=== PATIENT | female | born 1960 | race Caucasian/White ===

== ENCOUNTER 2018-03-30 06:16 | Inpatient (IN) ==
[2018-03-30] MEDS ORDERED: MAGNESIUM SULF RIDER 4 GM in PREMIX 1 EACH IV PRN (07:56)
[2018-03-30] MEDS ORDERED: ZALEPLON 5 MG CAPSULE PO PRN (07:56)
[2018-03-30] MEDS ORDERED: DOCUSATE SODIUM 100 MG CAPSULE PO PRN (07:56)
[2018-03-30] MEDS ORDERED: MAGNESIUM SULF RIDER 2 GM in PREMIX 1 EACH IV PRN (07:56)
[2018-03-30] MEDS ORDERED: ACETAMINOPHEN 325 MG TABLET PO PRN (07:56)
[2018-03-30] MEDS ORDERED: MORPHINE 4 MG/1 ML VIAL IV PRN (07:56)
[2018-03-30] MEDS ORDERED: diphenhydrAMINE CAP 25 MG CAPSULE PO PRN (07:56)
[2018-03-30] MEDS ORDERED: ONDANSETRON 4 MG/2 ML VIAL IV PRN (07:56)
[2018-03-30] MEDS ORDERED: DILTIAZEM INJ 100 MG in SODIUM CHLORIDE 0.9% 100 ML IV SCH (08:00)
[2018-03-30 09:01] LABS: Basophils % 0.4 % (0.0-0.8); Eosinophils # 0.1 10*3/uL (0.0-0.87); Eosinophils % 1.6 % (0.00-10.9); Hematocrit 42.8 VOL% (35.7-47.0); Hemoglobin 14.3 GM/DL (12.0-16.0); Immature Granulocytes % 0.2 %; Immature Granulocytes Absolute 0.01 #; Lymphocytes # 1.3 10*3/uL (1.4-4.0); Lymphocytes % 25.1 % (21.3-54.2); Mean Corpuscular HGB Conc 33.4 GM/DL (32-36); Mean Corpuscular Hemoglobin 29 PG (27-34); Mean Corpuscular Volume 88.1 FL (87-102); Mean Platelet Volume 9.7 FL (9.6-12.0); Monocytes # 0.5 10*3/uL (0.11-0.8); Monocytes % 9.2 % (1.7-12.7); Neutrophils # 3.3 10*3/uL (1.4-7.4); Neutrophils % 63.5 % (38.7-73.9); Platelet Count 208 T/CUMM (130-400); Red Blood Count 4.86 MC/CUMM (3.8-5.5); White Blood Count 5.1 T/CUMM (4-12)
[2018-03-30 09:35] LABS: Thyroid Stimulating Hormone < 0.005 uIU/ml (0.358-3.74)
[2018-03-30 09:36] LABS: Calcium 8.9 MG/DL (8.5-10.1); Osmolality,Calculated 287.7 MOS/KG (273-304); Potassium 4.2 MMOL/L (3.5-5.1)
[2018-03-30] MEDS ORDERED: SOTALOL 80 MG TABLET PO SCH (10:00)
[2018-03-30] MEDS: PANTOPRAZOLE 40 MG TABLET PO SCH (11:31)
[2018-03-30] MEDS ORDERED: DILTIAZEM CD 180 MG CAPSULE PO SCH ×2 (12:00→21:00)
[2018-03-30] MEDS ORDERED: SODIUM CHLORIDE 0.9% 250 ML IV ONE ×2 (13:19→13:39)
[2018-03-30] MEDS ORDERED: ETOMIDATE 40 MG/20 ML VIAL IV ONE (13:51)
[2018-03-30] MEDS ORDERED: PROPOFOL 200 MG/20 ML VIAL IV ONE (13:51)
[2018-03-30] MEDS ORDERED: SODIUM CHLORIDE 0.9% 500 ML IV ONE (14:08)
[2018-03-30] MEDS ORDERED: SODIUM CHLORIDE 0.9% 1,000 ML IV ONE (14:39)
[2018-03-30] MEDS: SODIUM CHLORIDE 0.9% 1,000 ML IV SCH ×2 (16:01→22:46)
[2018-03-31 04:38] LABS: Basophils % 0.2 % (0.0-0.8); Eosinophils # 0.1 10*3/uL (0.0-0.87); Hemoglobin 13.5 GM/DL (12.0-16.0); Immature Granulocytes % 0.2 %; Immature Granulocytes Absolute 0.02 #; Lymphocytes # 2.2 10*3/uL (1.4-4.0); Mean Corpuscular HGB Conc 32.9 GM/DL (32-36); Mean Corpuscular Hemoglobin 29 PG (27-34); Mean Corpuscular Volume 89.3 FL (87-102); Mean Platelet Volume 10.5 FL (9.6-12.0); Monocytes # 0.8 10*3/uL (0.11-0.8); Monocytes % 8.9 % (1.7-12.7); Neutrophils # 5.7 10*3/uL (1.4-7.4); Neutrophils % 64.7 % (38.7-73.9); Platelet Count 200 T/CUMM (130-400); Red Blood Count 4.59 MC/CUMM (3.8-5.5); Red Cell Distribution Width 12.1 % (9.3-17.3); White Blood Count 8.8 T/CUMM (4-12)
[2018-03-31 04:56] LABS: Calcium 8.3 MG/DL (8.5-10.1); Osmolality,Calculated 287.6 MOS/KG (273-304); Potassium 3.9 MMOL/L (3.5-5.1)
[2018-03-31] MEDS: SODIUM CHLORIDE 0.9% 1,000 ML IV SCH (05:09)
[2018-03-31] MEDS: PANTOPRAZOLE 40 MG TABLET PO SCH (08:58)
[2018-03-31] MEDS ORDERED: THYROID PORK 45 MG PO SCH (09:00)
[2018-03-31] MEDS ORDERED: THYROID PORK 120 MG PO SCH (09:00)
[2018-03-31] MEDS: DILTIAZEM CD 180 MG CAPSULE PO SCH (10:13)
[2018-03-31] MEDS: METOPROLOL SUCCINATE XL 25 MG TABLET PO SCH ×2 (10:13→21:12)
[2018-03-31] MEDS: FLECAINIDE 50 MG TABLET PO SCH ×2 (11:29→21:12)
[2018-03-31] MEDS: RIVAROXABAN 20 MG TABLET PO SCH (16:41)
[2018-04-01 04:15] LABS: Basophils % 0.3 % (0.0-0.8); Eosinophils # 0.1 10*3/uL (0.0-0.87); Eosinophils % 1.8 % (0.00-10.9); Hematocrit 38.9 VOL% (35.7-47.0); Hemoglobin 13.3 GM/DL (12.0-16.0); Immature Granulocytes % 0.3 %; Immature Granulocytes Absolute 0.02 #; Lymphocytes # 2.2 10*3/uL (1.4-4.0); Lymphocytes % 31.5 % (21.3-54.2); Mean Corpuscular HGB Conc 34.2 GM/DL (32-36); Mean Corpuscular Hemoglobin 29 PG (27-34); Mean Corpuscular Volume 85.1 FL (87-102); Mean Platelet Volume 10.5 FL (9.6-12.0); Monocytes # 0.6 10*3/uL (0.11-0.8); Monocytes % 8.6 % (1.7-12.7); Neutrophils # 3.9 10*3/uL (1.4-7.4); Neutrophils % 57.5 % (38.7-73.9); Platelet Count 196 T/CUMM (130-400); Red Blood Count 4.57 MC/CUMM (3.8-5.5); Red Cell Distribution Width 11.9 % (9.3-17.3); White Blood Count 6.8 T/CUMM (4-12)
[2018-04-01 04:55] LABS: Calcium 8.5 MG/DL (8.5-10.1); Osmolality,Calculated 284.8 MOS/KG (273-304); Potassium 3.5 MMOL/L (3.5-5.1)
[2018-04-01] MEDS ORDERED: SODIUM CHLORIDE 0.9% 1,000 ML IV SCH (09:00)
[2018-04-01] MEDS ORDERED: PROPOFOL 200 MG/20 ML VIAL IV ONE (09:29)
[2018-04-01] MEDS ORDERED: DILTIAZEM CD 120 MG CAPSULE PO SCH (09:30)
[2018-04-01] MEDS: FLECAINIDE 50 MG TABLET PO SCH ×2 (10:11→21:18)
[2018-04-01] MEDS: PANTOPRAZOLE 40 MG TABLET PO SCH ×2 (10:12→10:14)
[2018-04-01] MEDS: METOPROLOL SUCCINATE XL 25 MG TABLET PO SCH ×3 (10:12→21:19)
[2018-04-01] MEDS: DILTIAZEM CD 180 MG CAPSULE PO SCH (10:22)
[2018-04-01] MEDS: RIVAROXABAN 20 MG TABLET PO SCH (16:50)
[2018-04-01] MEDS ORDERED: DILTIAZEM 30 MG TABLET PO SCH (21:00)
[2018-04-01] MEDS: DILTIAZEM 30 MG TABLET PO SCH (21:18)
[2018-04-01] MEDS: DILTIAZEM CD 120 MG CAPSULE PO SCH (21:19)
[2018-04-02 05:52] LABS: Basophils % 0.3 % (0.0-0.8); Eosinophils # 0.2 10*3/uL (0.0-0.87); Eosinophils % 2.5 % (0.00-10.9); Hematocrit 41.4 VOL% (35.7-47.0); Hemoglobin 14.1 GM/DL (12.0-16.0); Immature Granulocytes % 0.6 %; Immature Granulocytes Absolute 0.04 #; Lymphocytes % 29.2 % (21.3-54.2); Mean Corpuscular HGB Conc 34.1 GM/DL (32-36); Mean Corpuscular Hemoglobin 29 PG (27-34); Mean Corpuscular Volume 85.5 FL (87-102); Mean Platelet Volume 10.4 FL (9.6-12.0); Monocytes # 0.6 10*3/uL (0.11-0.8); Monocytes % 8.4 % (1.7-12.7); Platelet Count 213 T/CUMM (130-400); Red Blood Count 4.84 MC/CUMM (3.8-5.5); Red Cell Distribution Width 11.9 % (9.3-17.3); White Blood Count 6.8 T/CUMM (4-12)
[2018-04-02 06:09] LABS: Osmolality,Calculated 284.7 MOS/KG (273-304); Potassium 3.6 MMOL/L (3.5-5.1)
[2018-04-02] MEDS: PANTOPRAZOLE 40 MG TABLET PO SCH (08:23)
[2018-04-02] MEDS: METOPROLOL SUCCINATE XL 25 MG TABLET PO SCH (08:24)
[2018-04-02] MEDS: FLECAINIDE 50 MG TABLET PO SCH (08:24)
[2018-04-02] MEDS: DILTIAZEM 30 MG TABLET PO SCH (08:24)
[2018-04-02] MEDS: DILTIAZEM CD 120 MG CAPSULE PO SCH (08:25)
[2018-04-02] MEDS ORDERED: HYDROCORTISONE 1% CREAM 28 GM TUBE TOP PRN (10:21)
[2018-04-02 11:50] VITALS: BP 114/70
== END 2018-04-02 11:57 | disposition home or self-care (01) | DRG 310 ==
LOC: N.CL 06:16 → N.2W 07:56 → N.TELEN 11:17
PROVIDERS: ADMIT Internal Medicine Cardiovascular Disease; ATTEND Internal Medicine Cardiovascular Disease